=== PATIENT | male | born 1955 | race Caucasian/White ===

== ENCOUNTER 2020-06-24 06:45 | Observation (INO) ==
[2020-06-24] MEDS ORDERED: BUPIVACAINE 0.25% 30 ML VIAL ONE (07:36)
[2020-06-24] MEDS ORDERED: LIDOCAINE HCL 1% 20 ML VIAL ONE (07:36)
[2020-06-24] MEDS ORDERED: BACITRACIN INJ 50,000 UNIT VIAL ONE (07:36)
[2020-06-24] MEDS ORDERED: MIDAZOLAM HCL 5 MG/ML 1 ML VIAL ONE (08:23)
[2020-06-24] MEDS ORDERED: fentaNYL citrate 100 MCG/2 ML VIAL ONE (08:23)
--- NOTE | 2020-06-24 08:39 | History & Physical Bridge Note ---
Date of Service June 24, 2020 History & Physical Bridge Note I have examined the patient, reviewed the History & Physical and in the interval since the performance of the History & Physical I have noted the following changes of clinical significance: no changes noted
--- NOTE | 2020-06-24 08:39 | Pre Anesthesia Assessment ---
Date of Service June 24, 2020 Pre Sedation Assessment Vital Signs Temp Pulse Resp BP Pulse Ox 06/24/20 07:10 37.1 C 68 16 168/87 H 94 Cardiovascular + bradycardic Respiratory normal respiratory effort, lungs clear to auscultation Pre-Sedation Airway Assessment Smoking Status: Former smoker Hx Sleep Apnea: No Short, Thick Neck: No Thyromental Distance: > or= 3.5 Finger Breadths Oral Cavity: + Dentures Mallampati Class: II ASA: ASA3 NPO Status Date of Last Intake of Fluids: 06/24/20 Time of Last Intake of Fluids: 00:00 Date of Last Intake of Solid Food: 06/24/20 Time of Last Intake of Solid Foods: 00:00 Procedure Planning Contraindications for Sedation: none Current Medications Reviewed: Yes Notes The planned sedation has been discussed with the patient. Informed Consent was obtained. I have identified the patient, determined the appropriateness of sedation and have assessed the patient immediately prior to the procedure. All medicine(s) and interventions are by my order.
--- NOTE | 2020-06-24 10:42 | Post Anesthesia Assessment ---
Date of Service June 24, 2020 Post Sedation Assessment Vital Signs Temp Pulse Resp BP Pulse Ox 06/24/20 07:10 37.1 C 68 16 168/87 H 94 Recovery Score Activity: Moves 4 extremities Respiration: Deep Breath/Cough Circulation: +/-20% PreAnes Value Consciousness: Fully Awake Oxygen Saturation: > 92% On Room Air Discharge Sedation Level of Care: Fast Track Phase II Post Sedation Plan On clinical assessment, the patient appears to have tolerated the sedation without complications. Patient is recovering as anticipated. Patient will continue to be monitored by nursing and may be discharged when sedation discharge criteria are met per below protocol. Upon Completions of procedure up to 15 minutes continue every 5 minute vital signs and the P.A.R. score; then discharge to a Phase I or Fast Track to Phase II per the following guidelines: * Discharge Patient to appropriate Phase II area if PAR is 8 or greater or return to pre- procedure baseline. The post - procedure orders will be as directed. * If PAR score is less than 8 or not return to pre-procedure baseline then patient will follow Phase I monitoring till PAR is reached for Phase II. The Phase I may be done in procedure room or may call to secure a Phase I area. * If naloxone or flumazenil are used for reversal, hold in Phase I for continued monitoring from when last reversal dose was given for a minimum of 60 minutes or longer pending the nurse and/or physician discretion of patient condition before discharge to Phase II. Please call the Sedation Physician to re-evaluate and complete post-note for discharge to Phase II area. Do NOT discharge from procedure sedation or Phase 1 until post- sedation evaluation note is complete by procedure /sedation MD Sedation Discharge Instructions to be given to the patient at discharge to home.
[2020-06-24] MEDS ORDERED: ACETAMINOPHEN 325 MG TAB PO PRN (10:44)
[2020-06-24] MEDS ORDERED: oxyCODONE/ACETAMINOPHEN 5mg/325mg TAB PO PRN (10:44)
--- NOTE | 2020-06-24 10:44 | Operative Report ---
Post Operative Report Pre & Post Diagnosis intermittent CHB Operation Date: 06/24/20 08:00 <No data on this case meets the specified criteria> I identified the patient and participated in the time-out.: Yes Procedure Operation Date: 06/24/20 08:00 Actual Procedures p Pacer with A/V Leads (Dual) - Sunita Lee DO intracardiac mapping of the HIS bundle Surgeon Sunita Lee, DO Feed Manager none Estimated Blood Loss 20 Findings Consistent with Post-Op Diagnosis Specimens none Description of Procedure see official report I attest to the content of the Intraoperative Record and any orders documented therein. Any exceptions are noted below.
--- NOTE | 2020-06-24 11:01 | Discharge Summary ---
Date of Service June 25, 2020 Admission HPI Per Admitting Provider syncope and fatigue Admission Exam Per Admitting Provider aaox3, NAD NC/AT, EOMI Supple No JVD Nrl S1/S2, No murmur CTA b/l no w/r/r soft nt/nd no LE edema b/l skin intact no focal deficits Principal Diagnosis intermittent CHB s/p ppm Discharge Exam aaox3, NAD NC/AT, EOMI Supple No JVD Nrl S1/S2, No murmur CTA b/l no w/r/r soft nt/nd no LE edema b/l skin intact no focal deficits left pectoral incision intact, no hematoma mild ecchymosis Discharge Data Allergies Allergy/AdvReac Type Severity Reaction Status Date / Time abciximab AdvReac Nausea Verified 06/24/20 07:27 oxycodone AdvReac Nausea Verified 06/24/20 07:27 Procedures Performed Operation Date: 06/24/20 08:00 Actual Procedures p Pacer with A/V Leads (Dual) - Sunita Lee, Ordered Studies ECG: SR CXR: No PTX, leads in position PPM Interrogation: Normal function and lead testing 06/24/20 07:45 EP Lab Images for PACS ONCE Hospital Course (1) Intermittent complete heart block: Total Time Total Time Spent Total Time Spent (In Minutes): 40 Total Time Includes: Examination of the Patient, Discharge Planning, Medication Reconciliation and Other Discharge Plan Discharge Items Patient Disposition: Home - Self-Care Reason For Visit: Intermittent CHB Discharge Diagnosis: intermittent chb s/p ppm Condition on Discharge: Good Activity: As commented below Activity Comment: do not raise the left elbow over the left shoulder for 1 month Lifting: No more than 10 pounds Lifting Comment: do not lift more than 10 pounds with the left arm for 2 weeks Bathing: Keep incision dry Bathing Comment: keep dressing on and dry until wound check next week Sexual Activity: After two weeks Non-emergency contact: Casting Room Operator Call non-emergency contact if: you have any medication questions Follow-up/Referrals: PCP,NO [Primary Care Provider] - Diet: Heart Healthy Addtl Attending Provider Instructions: device and wound check next week at [facility] Pending Studies at Discharge: No Stand-Alone Forms: My [facility] MD [employer] Medications and DC Order Prescriptions: New metoprolol succinate 25 mg Tablet Extended Release 24 Hr 25 mg PO QAM 30 Days Qty: 30 RF: 0 Continued atorvastatin 80 mg Tablet 80 mg DAILY RF: 0 levothyroxine 100 mcg Tablet 100 mcg PO DAILY RF: 0 tamsulosin 0.4 mg Capsule 0.4 mg PO DAILY RF: 0 omeprazole 20 mg Capsule,Delayed Release(Dr/Ec) 20 mg PO BID RF: 0 folic acid 1 mg Tablet 1 mg BID RF: 0 aspirin 81 mg Tablet 81 mg PO DAILY RF: 0 metoprolol succinate 25 mg Tablet Extended Release 24 Hr 25 mg PO DAILY RF: 0 lisinopril 2.5 mg Tablet 2.5 mg PO DAILY RF: 0 etanercept 50 mg/mL (1 mL) Syringe 50 mg SUBCUT WK RF: 0 methotrexate (PF) 25 mg/0.5 mL Auto-Injector 20 mg SUBCUT WK RF: 0 Discharge Orders: Discharge Order (Routine); Ordered 06/25/20 Ordered By: Sunita Peoples/Other Patient Handouts: Pacemakers, Living with a Pacemaker Admission Data Admit Date/Time: 06/24/20 09:37 Attending Provider: Sunita Lee Admit Provider: Sunita Lee Primary Care Provider: PCP,NO Other Interventions: Discharge Summary Assessment (RN) Last Done: 06/25/20 09:41
[2020-06-24] MEDS: METOPROLOL SUCC 25MG EXT REL TAB PO SCH (12:41)
[2020-06-24] MEDS: [UNRECOGNIZED DRUG - REMARK] SCH ×2 (14:03→15:14)
[2020-06-24] MEDS: PANTOprazole 40 MG TAB PO SCH (20:26)
[2020-06-24] MEDS: FOLIC ACID 1 MG TAB PO SCH (20:26)
[2020-06-25] MEDS: [UNRECOGNIZED DRUG - REMARK] SCH ×2 (01:10→08:37)
--- NOTE | 2020-06-25 06:21 | Electrocardiogram Report ---
Test Reason : Blood Pressure : / mmHG Vent. Rate : 065 BPM Atrial Rate : 065 BPM P-R Int : 242 ms QRS Dur : 134 ms QT Int : 464 ms P-R-T Axes : 017 -66 008 degrees QTc Int : 482 ms Atrial-paced rhythm with prolonged AV conduction with occasional Premature ventricular complexes Left axis deviation Right bundle branch block Inferior infarct Abnormal ECG No previous ECGs available Confirmed by Piyush Gautam ([id number]) on 06/25/2020 6:20:51 AM Referred By: Sunita Lee Confirmed By:Piyush Gautam
[2020-06-25] MEDS ORDERED: LEVOTHYROXINE SODIUM 100 MCG TABLET PO SCH (06:30)
--- NOTE | 2020-06-25 08:02 | XRay Report ---
XR chest 2V PA/lateral CLINICAL HISTORY: Post pacemaker insertion. COMPARISON STUDY: No previous studies for comparison. FINDINGS: There is no pneumothorax following placement of a dual-lead left subclavian pacemaker. Lead tips project over the right atrial appendage and the right ventricle. Right shoulder arthroplasty is partially imaged. Note is made of cardiomegaly without evidence for pulmonary edema. There is no con solidation. No pleural effusion. IMPRESSION: No pneumothorax following placement of a dual-lead left subclavian pacemaker. ACT 112: Negative or not required by law. Electronically signed by: Eddie Pickett M.D. 06/25/2020 8:01 AM
[2020-06-25] MEDS: FOLIC ACID 1 MG TAB PO SCH (08:36)
[2020-06-25] MEDS: PANTOprazole 40 MG TAB PO SCH (08:36)
[2020-06-25] MEDS: METOPROLOL SUCC 25MG EXT REL TAB PO SCH (08:37)
[2020-06-25] MEDS ORDERED: TAMSULOSIN HCL 0.4 MG CAP PO SCH (09:00)
[2020-06-25] MEDS ORDERED: METOPROLOL SUCC 25MG EXT REL TAB PO SCH (09:00)
[2020-06-25] MEDS ORDERED: ATORVASTATIN 40 MG TAB PO SCH (09:00)
[2020-06-25] MEDS ORDERED: ASPIRIN 81 MG ECTAB PO SCH (09:00)
[2020-06-25] MEDS ORDERED: lisinopril 2.5 MG TAB PO SCH (09:00)
--- NOTE | 2020-06-29 03:12 | Operative Report (OR) ---
DATE OF OPERATION: 06/24/2020 PREOPERATIVE DIAGNOSIS: Intermittent incomplete heart block and syncope. POSTOPERATIVE DIAGNOSIS: Intermittent incomplete heart block and syncope. PROCEDURE: Dual chamber rate responsive permanent pacemaker (the right pacing lead was placed in the left bundle position). Permanent pacemaker with a peripheral venogram and intracardiac His bundle mapping under fluoroscopic guidance. SURGEON: Sunita Lee DO ASSISTANTS: None. ANESTHESIA: Monitored conscious sedation administered under my supervision by Lety White. Start time 9:04, end time 10:41, a total of 4 mg of Versed, 100 mcg of fentanyl. INTRAVENOUS FLUIDS: 57 mL. ANTIBIOTICS: Two grams of Ancef. BLOOD LOSS: 20 mL. CONTRAST: 20 mL. INDICATIONS: This is a 64-year-old gentleman who has a past medical history for right bundle branch block, first-degree AV block, and a left anterior fascicular block, coronary artery disease with a history of a PCI to the RCA with in-stent restenosis of the [employer] back where he got another PCI in 2018. Other vessels did have moderate disease. Hypertension, hyperlipidemia, ischemic cardiomyopathy with an ejection fraction of 40% back in [address] in 2019. Mild aortic insufficiency, rheumatoid arthritis on methotrexate, BPH, gastroesophageal reflux disease, hypothyroidism, prediabetes, possibly needing a total hip replacement in the near future. The patient wore a Zio patch monitor back in February of 2020 that showed a lot of intermittent complete heart block as well as potential nonsustained VT. He ultimately went to [facility] where an EP study was performed that was negative for any inducible VT and no pacemaker was placed. Due to him recently having near syncopal episode with the evidence of the intermittent complete heart block and trifascicular block, I recommended that he have a pacemaker. CONSENT: Consent was obtained prior to the patient going into the electrophysiology lab. The patient was informed of the risks, benefits, and alternatives to procedure. Risks include, but not limited to sudden cardiac , cardiac arrhythmias, cerebrovascular accident, myocardial infarction, injury to the blood vessels, chamber of the heart, lung, bleeding, and infection. The patient understood these risks and agreed with procedure as planned. Informed consent was obtained. DESCRIPTION OF THE PROCEDURE: The patient was brought into electrophysiology lab in a fasting state. He was connected to continuous cardiac monitoring. A timeout was performed to ensure patient identity and procedure correctly. The patient received prophylactic antibiotics prior to incision. Mather precautions were maintained throughout the procedure and conscious sedation was administered throughout the procedure for patient's comfort level. A 10 mL of 1% lidocaine and bupivacaine mixture were given in the left deltopectoral groove. Incision was made in the left deltopectoral groove. A peripheral venogram was performed to identify the axillary vein. Then axillary venous access was obtained through a needle stick and a guidewire was inserted through this without any resistance and then a 7-Lithuanian sheath was advanced over the guidewire without any resistance. Dilator was removed and a second guidewire was inserted through the sheath to allow for retained venous access. Sheath was removed, flushed, reinserted over the dilator, then reinserted along the guidewires. The guidewire and dilator removed. I initially put the right atrial lead into the right ventricular apex just so I had backup pacing as I was positioning the left bundle lead. Then I inserted another 7-Lithuanian SafeSheath over the retained guidewire. The guidewire and dilator removed. Using the [employer] preformed His guide, sheath was advanced over the Glidewire into the right ventricle and the Glidewire and dilator were removed. Then I did intracardiac mapping of the His bundle to find the AH and the HV. Once I had an idea of where the His was, I positioned the camera in SMITH 30 and then marlon an imaginary line about 2 cm down from the His in the direction towards the apex and marked this on my fluoroscopy screen to kind of have an idea of where 1 wanted my left bundle lead. Then I put the camera into BULGARIAN 30 and I came on pacing. I looked at the progression of the notching QR in the QRS complex in lead V1 as well as I measured the pacing stem to QRS peak in V6 as well as I monitored impedance drops as I continued to do intervals of few turns as the lead progressed into the septum. I did end up repositioning it once because I did not like how my QRS notch was moving as well as I felt like I was maybe a little too proximal into the fibrinous membranous septum. Ultimately I felt like I had good capture and I gave contrast through the sheath to see how far I was up against the septum. Once I liked the position and I liked how the complex in V1 as well as impedance drops and the pacing stem to QRS peak in V5 were, I then slid the His preformed J sheath. I left the 7-Lithuanian sheath in while I went back to reposition the right atrial lead. The right atrial lead that was positioned for backup and pacing in the right ventricular apex was unscrewed and repositioned into the right atrial appendage under fluoroscopic guidance. There was adequate pacing and sensing thresholds and no diaphragmatic stimulation with high output pacing. The 7-Lithuanian SafeSheath was peeled away and lead was fixated to pectoralis muscle with 0 silk suture. I then slid the 7-Lithuanian SafeSheath over the left bundle lead. The left bundle lead was then fixated to pectoralis muscle using 0 silk suture. A pacemaker pocket was created using blunt dissection over the pectoralis muscle and then the pectoralis fascia. Pocket was flushed with copious amounts of bacitracin saline wash and inspected for hemostasis. Pulse generator was then attached to leads making sure the pins were in appropriate position, passed set screw and set screws were all tightened. Pulse generator was then placed in the antibiotic pouch followed then by being placed in the pocket making sure that the leads were lying flat beneath the device. The incision was then closed in 3-layer fashion with 2-0 Vicryl interrupted suture followed by 3-0 Vicryl interrupted suture followed by 4-0 Monocryl running stitch and Dermabond was applied followed by a Telfa and micropore dressing. EQUIPMENT: 1. The pulse generator is a Medtronic [place] Heart XT DR HERNAN Maldonado [id number], serial number [id number]. 2. Tyrx pouch, reference [id number], lot number [id number], expiration 04/05/2021. 3. Right atrial lead, Medtronic 5076-52 cm, serial number [id number]. 4. Left bundle lead, Medtronic 3830-69 cm, serial number [id number]. INTRAOPERATIVE TESTIN. Right atrial lead: P-wave 3.1 millivolts, impedance 669 ohms, threshold 0.3 volts at 0.4 milliseconds. 2. Left bundle lead: R-wave 4 millivolts, impedance 810 ohms, threshold 0.4 volts at 0.4 milliseconds. 3. The AH was 98 milliseconds and the HV was 71 milliseconds. FINAL MEASUREMENTS THROUGH THE DEVICE: 1. Right atrial lead: P waves 1.3 millivolts, impedance 551 ohms, threshold 0.75 volts at 0.4 milliseconds. 2. Left bundle lead: R waves 5.3 millivolts, impedance 741 ohms, threshold 0.5 volts at 0.4 milliseconds. FINAL PARAMETERS: MVP-R 60/130, right atrial amplitude 3.5 volts, pulse width 0.4 milliseconds, sensitivity 0.3 millivolts. Right ventricular amplitude 3.5 volts, pulse width 0.4 milliseconds, sensitivity 1.2 millivolts. IMPRESSION: Successful dual chamber rate responsive permanent pacemaker implantation along with a peripheral venogram and intracardiac mapping of the His bundle region under fluoroscopic guidance secondary to syncope and intermittent complete heart block along with trifascicular block. PLAN: Monitor patient overnight, 12-lead ECG, chest x-ray. He cannot lift the left elbow or left shoulder for 1 month. He cannot lift more than 10 pounds with the left arm for 2 weeks. He is to keep the dressing on and dry until his wound check in our [facility] next week. We will also start him on beta gricelda. I attest to the content of the Intraoperative Record and any orders documented therein. Any exceptions are noted below. JONATHAN
--- NOTE | 2020-07-02 14:30 | Coding Query ---
CODING QUERY To promote full compliance with coding requirements relating to patient care, provider participation is requested in all cases of veneer drier tailer uncertainty. Please assist us with the question(s) below: Coding Question(s): Please clarify the patient's pre-operative an post-operative diagnosis- Intermittent incomplete heart block and on the H&P and Discharge summary Intermittent Complete heart block. ____Intermittent incomplete heart block __X__Intermittent complete heart block ____Other, please specify Physician's Response(s): Thank you Tootie Frey CCS Principal Diagnosis: "that condition established after study, to be chiefly responsible for occasioning the admission of the patient to the hospital for care." Co-Existing Principal Diagnosis: "when two or more diagnoses equally meet the criteria for principal diagnosis as determined by the circumstances of admission, diagnostic work up, and/or therapy provided, and the Alphabetic Index, Tabular List, or another coding guideline does not provide sequencing direction, any one of the diagnoses may be sequenced first." "When the physician has documented what appears to be a current diagnosis in the body of the record, but has not included the diagnosis in the final diagnostic statement, the physician should be asked whether the diagnosis should be added." (Source [facility]oding [facility] 2 QTR90. p3-4) JONATHAN
== END 2020-06-25 12:27 | disposition home or self-care (01) ==
LOC: 2E 06:45 → EP 06:45

== ENCOUNTER 2022-04-16 08:09 | Observation (INO) ==
--- NOTE | 2022-03-30 14:25 | PAT Medication Instructions ---
Medication Instructions Date of Service March 30, 2022 Home Medications Medication Instructions Recorded Jonnie Panda #1 ea 03/26/22 aspirin 81 mg tablet 81 mg PO QAM atorvastatin 80 mg tablet 80 mg PO HS etanercept 50 mg/mL (1 mL) subcutaneous syringe (Enbrel) 50 mg subcut WK folic acid 1 mg tablet 1 mg PO QAM lisinopril 2.5 mg tablet 2.5 mg PO QAM metoprolol succinate 25 mg tablet,extended release 24 hr 25 mg PO QAM omeprazole 20 mg capsule,delayed release 20 mg PO QAM tamsulosin 0.4 mg capsule 0.4 mg PO QPM albuterol sulfate 90 mcg/actuation aerosol inhaler 1 inh inhalation QID PRN sob cyanocobalamin (vitamin B-12) 100 mcg tablet (Vitamin B-12) 100 mcg PO QAM fluticasone 250 mcg-salmeterol 50 mcg/dose blistr powdr for inhalation (Advair Diskus) 1 inh inhalation BID furosemide 40 mg tablet 40 mg PO QAM levothyroxine 88 mcg tablet 88 mcg PO QAM metformin 500 mg tablet 500 mg PO QAM naloxone 4 mg/actuation nasal spray 4 mg intranasal UD PRN narcotic overdose oxycodone 5 mg tablet 5 mg PO BID PRN Pain potassium chloride 20 mEq tablet,extended release 20 meq PO QAM Continue as directed naloxone 4 mg/actuation nasal spray 4 mg intranasal UD PRN narcotic overdose (if needed) ASK your prescriber and surgeon etanercept 50 mg/mL (1 mL) subcutaneous syringe (Enbrel) 50 mg subcut WK DO NOT take the morning of surgery folic acid 1 mg tablet 1 mg PO QAM lisinopril 2.5 mg tablet 2.5 mg PO QAM cyanocobalamin (vitamin B-12) 100 mcg tablet (Vitamin B-12) 100 mcg PO QAM furosemide 40 mg tablet 40 mg PO QAM metformin 500 mg tablet 500 mg PO QAM potassium chloride 20 mEq tablet,extended release 20 meq PO QAM Take morning of surgery With a small sip of water, OTHERWISE NOTHING TO EAT OR DRINK AFTER MIDNIGHT: aspirin 81 mg tablet 81 mg PO QAM (unless surgeon directed otherwise) metoprolol succinate 25 mg tablet,extended release 24 hr 25 mg PO QAM omeprazole 20 mg capsule,delayed release 20 mg PO QAM albuterol sulfate 90 mcg/actuation aerosol inhaler 1 inh inhalation QID PRN sob (use if needed; please bring with you to hospital day of surgery if possible) fluticasone 250 mcg-salmeterol 50 mcg/dose blistr powdr for inhalation (Advair Diskus) 1 inh inhalation BID levothyroxine 88 mcg tablet 88 mcg PO QAM oxycodone 5 mg tablet 5 mg PO BID PRN Pain (if needed) Take evening before surgery atorvastatin 80 mg tablet 80 mg PO HS tamsulosin 0.4 mg capsule 0.4 mg PO QPM albuterol sulfate 90 mcg/actuation aerosol inhaler 1 inh inhalation QID PRN sob (if needed) fluticasone 250 mcg-salmeterol 50 mcg/dose blistr powdr for inhalation (Advair Diskus) 1 inh inhalation BID oxycodone 5 mg tablet 5 mg PO BID PRN Pain (if needed) Other Notes If you have any questions please call us at [phone] or [phone] or [phone] or [phone]
--- NOTE | 2022-03-31 11:13 | Anesthesiology Consultation ---
Date of Service March 31, 2022 Assessment & Plan (1) Encounter for pre-operative examination: Chart Review Chart Review: Acceptable Risk for Surgery (pending preop Covid testing results ) and Patient seen in Pre Admission Testing - Check BSG AM DOS Per PAT appt on 03/31/22, patient denies any recent travel or large group activities. No known Covid positive exposures or Covid related symptoms. No known Covid infection in the past 90 days. Pt is vaccinated for Covid. Preop Covid testing scheduled 04/14/22 = will await results. Educated on importance of self quarantining, social distancing and wearing mask in public for the patient one week prior to surgery and after Covid testing done Pt seen by PCP 03/30/22= patient seen for routine follow-up. Planning to have right LUBA later this month. Has been cleared by file conversion operator already. Doing well overall. Would consider patient medically stabilized for planned right total hip arthroplasty. Does have some increased risk due to chronic cardiac and pulmonary disease but stable. Current medically optimized. Okay to proceed with surgery as scheduled. Pt seen by cardio 02/25/22= seen for routine follow-up. Feels well from cardiovascular perspective. Continues with right-sided hip discomfort. Paroxysmal SVT per pacemaker interrogationpalpitations controlled with Topro lno recurrence on PPM interrogation December 2021. CAD with ischemic cardiomyopathymost recent EF 50-54%. Stable without exertional angina. Isolated episode of recurrent atypical chest discomfortstable EKG today. Recent DSE negative for inducible ischemia September 2020. Complete heart block with underlying conduction disease including RBBB and LAFB status post chamber pacemaker implantation May 2020. Nonsustained ventricular tachycardia. 0 monitorno inducible VT per EPS/no dysrhythmia. PPM interrogation December 2021. Hypertensioncontrolled. Dyslipidemiacontrolled. Continue current medications as prescribed. Patient is considered moderate perioperative cardiovascular risk. His functional capacity is adequate (greater than 4 METS) without anginal symptoms. Risk discussed during today's office visit. Follow-up in 6 months Teaching & Discussion Pre-Anesthesia Teaching/Discussion Notes: Instructed NPO after midnight before surgery,except medications with 15 cc of water. Medication instructions provided according to the PAT guidelines. History Surgery Operation Date: 04/16/22 10:40 Proposed Procedures p Right Total Hip Arthroplasty - Braulio Ornelas MD Height/Weight Height: 5 ft 6 in Weight: 84.5 kg Allergies Allergy/AdvReac Type Severity Reaction Status Date / Time abciximab AdvReac Severe Nausea Verified 03/30/22 12:38 oxycodone AdvReac Severe Nausea Verified 03/30/22 12:38 Medications Home Medications Medication Instructions Recorded Confirmed Last Taken aspirin 81 mg tablet 81 mg PO QAM 06/24/20 03/30/22 Unknown atorvastatin 80 mg tablet 80 mg PO HS 06/24/20 03/30/22 Unknown etanercept 50 mg/mL (1 mL) 50 mg subcut WK 06/24/20 03/30/22 Unknown subcutaneous syringe (Enbrel) folic acid 1 mg tablet 1 mg PO QAM 06/24/20 03/30/22 Unknown lisinopril 2.5 mg tablet 2.5 mg PO QAM 06/24/20 03/30/22 Unknown metoprolol succinate 25 mg 25 mg PO QAM 06/24/20 03/30/22 Unknown tablet,extended release 24 hr omeprazole 20 mg capsule,delayed 20 mg PO QAM 06/24/20 03/30/22 Unknown release tamsulosin 0.4 mg capsule 0.4 mg PO QPM 06/24/20 03/30/22 Unknown Wheeled Walker #1 ea 03/26/22 03/26/22 Unknown albuterol sulfate 90 mcg/actuation 1 inh inhalation QID PRN sob 03/30/22 03/30/22 Unknown aerosol inhaler cyanocobalamin (vitamin B-12) 100 100 mcg PO QAM 03/30/22 03/30/22 Unknown mcg tablet (Vitamin B-12) fluticasone 250 mcg-salmeterol 50 1 inh inhalation BID 03/30/22 03/30/22 Unknown mcg/dose blistr powdr for inhalation (Advair Diskus) furosemide 40 mg tablet 40 mg PO QAM 03/30/22 03/30/22 Unknown levothyroxine 88 mcg tablet 88 mcg PO QAM 03/30/22 03/30/22 Unknown metformin 500 mg tablet 500 mg PO QAM 03/30/22 03/30/22 Unknown naloxone 4 mg/actuation nasal spray 4 mg intranasal UD PRN narcotic 03/30/22 03/30/22 Unknown overdose oxycodone 5 mg tablet 5 mg PO BID PRN Pain 03/30/22 03/30/22 Unknown potassium chloride 20 mEq 20 meq PO QAM 03/30/22 03/30/22 Unknown tablet,extended release Past Medical History Medical History (Updated 03/31/22 @ 11:42 by Alesha Roberto PA-C) CAD (coronary artery disease) S/p stent x 1 in 2000 (RCA) S/p stents x 3 in 2018 (mid RCA) Chronic obstructive pulmonary disease Mild - well controlled with inhalers Congestive heart failure Hx of ischemic CM EF 50-54% per 10/2021 ECHO Diabetes mellitus, type 2 NIDDM Glucose stable GERD (gastroesophageal reflux disease) Well controlled and stable per patient History of COVID-19 09/2020. Mild cold symptoms. No current problems Hx of cardiac pacemaker Medtronic. Placed 2019 at [facility]. Last checked October 2021. Follows with [facility] Cardio Hx of tachycardia-bradycardia syndrome S/p pacemaker placement Hyperlipidemia Hypertension Hypothyroidism Intermittent complete heart block S/p PPM Kidney stones No recent issues Lumbar disc disease Hx of ruptured discs to lumbar spine Myocardial Infarction 2017 2000 Rheumatoid arthritis SVT (supraventricular tachycardia) Paroxysmal per pacemaker interrogation per cardio records No recurrence on PPM interrogation 12/2021 (on Toprol XL) Exercise / Class Metabolic Activity III < 4 Walking/Shop/Light housework (no chest pain or SOB with flat surface ambulation ) Past Family History Family History Other No family history of adverse response to anesthesia Past Surgical History Surgical History H/O inguinal hernia repair right H/O umbilical hernia repair History of colonoscopy History of heart artery stent one stent placed in 2000 and 3 stents placed in 2018 at [facility] S/P cardiac catheterization 2000 & 2018 ([facility]) S/P cardiac pacemaker procedure (~06/24/20) [facility] S/P right knee arthroscopy Status post reverse total replacement of right shoulder Past Anesthesia History No Hx of Anesthesia Complications and No Family Hx of Anesthesia Complications History of PONV No Hx of PONV and No Hx of Motion Sickness Social History Smoking Status: Former smoker tobacco type: cigarettes Do You Dip or Chew Tobacco: No Smoking End Date: Hx Alcohol Use: Yes Alcohol type: beer alcohol intake frequency: holidays/special occasions only Hx Substance Use: No substance use type: does not use Review of Systems Hx of snoring - no witnessed apnea- no hx of sleep study Patient denies chest pain, shortness of breath, dyspnea on exertion, cough, wheezing, palpitations. No hx of seizures, stroke. No hx of blood clots or blood transfusions Physical Exam Vital Signs VITALS BP 125/74 P 78 TEMP 97.8 SP02 95% RESP 16 Constitutional no acute distress ENMT Mouth: no TMJ clicking Thyromental Distance: < 3.5 Finger Breadths (3.0) Mallampati Class: II Missing all teeth Neck + short neck, + thick neck and + limited neck extension Respiratory normal respiratory effort; no respiratory distress Auscultation: lungs clear to auscultation bilaterally; no wheezes Cardiovascular Rate/Rhythm: regular rate and regular rhythm Heart Sounds: no murmur Vessels: no carotid bruit Musculoskeletal Spine: no pain with cervical ROM Extremities: extremities normal to inspection Psychiatric Orientation: alert Lab Results Anesthesia Preop Results Results Anesthesia Widget: WBC 7.65 K/ul (4.8-10.8) 03/31/22 Hgb 12.6 g/dl (14.0-18.0) L 03/31/22 Hct 36.3 % (40.1-51.0) L 03/31/22 Plt 276 K/uL (130-400) 03/31/22 Na 136 mmol/L (136-145) 03/31/22 K 3.8 mmol/L (3.5-5.1) 03/31/22 Cl 101 mmol/L (98-107) 03/31/22 CO2 27 mmol/L (21-32) 03/31/22 BUN 18 mg/dl (6-23) 03/31/22 Creat 0.96 mg/dl (0.6-1.4) 03/31/22 Glucose Level 184 mg/dl (70-99(Fasting)) H 03/31/22 PT 10.9 Seconds (9.0-12.0) 03/31/22 PTT 25.6 Seconds (21.0-31.0) 03/31/22 INR 1.0 (0.9-1.1) 03/31/22 HA1c 7.3 % (4.5-5.6) H 03/31/22 Blood Type O Positive 03/31/22 Antibody Screen POSITIVE A 03/31/22 Testing Laboratory Results Did speak with Blood Bank re: positive antibodies- no additional work up needed prior to DOS Electrocardiogram Date: 10/28/21 Atrial paced rhythm with prolonged AV conduction with premature supraventricular complexes at 72 bpm. Left axis deviation. Right bundle branch block. When compared to EKG from May 20lectronic atrial pacemaker is replaced sinus rhythm, nonspecific T wave abnormality now evident in anterior lateral leads per cardio Chest X-Ray Date: 03/31/22 Findings: + NAD Left sided dual- chamber pacemaker Echocardiogram Date: 11/24/21 EF: 50-54% LV Function: normal Other Findings: + LVH (Moderate/concentric) and + diastolic dysfunction (Grade 1) Severe hypokinesis to akinesis of the basilar and mid inferior wall. Posterior wall is hypokinetic at the base and mid level. Mild AR Stress Test Date: 10/24/20 Type: DSE Resting EF: 45-49% Resting LV Function: dysfunctional Valvular Disease: no significant valvular disease Stress echo was negative for inducible ischemia. Adequate/appropriate heart rate and BP response to dobutamine/atropine stress protocol. No symptoms were noted. Interventricular conduction delay was noted at rest. Stress EKG was nondiagnostic secondary to conduction abnormalities. At rest, there is severe hypokinesis to akinesis of the basilar and mid inferior wall. Posterior wall is hypokinetic at the base and mid level. Subtle hypokinesis of the lateral wall. With stress all segments improve in function including those with wall motion abnormalities at rest. No new wall motion abnormalities suggest ischemia. LV ejection fraction increases normally with stress. Moderate concentric LVH. Grade 1 DD. Cardiac Catheterization Date: 11/17/17 LM = no evidence of disease LAD = 40% stenosis in proximal LAD (unchanged from 2014 study); 50% stenosis in the ostium of first diagonal; 40% stenosis in mid LAD (has not changed in severity or character since 2014) Circumflex = proximal 60% stenosis which is smooth and unchanged in severity compared to 2014 RCA = mid RCA severely diseased and has an existing [id number]% lesion in mid RCA. Distal RCA consists of moderate size posterior descending artery branch and a moderate-sized posterior lateral branch. Prior to PCI of the RCA these distal branches fill fairly well via collateral channels originating primarily from LAD septal branches Conclusions: Coronary arteries have significant one-vessel disease. PAULETTE/PCI of chronic total occlusion of RCA with three PAULETTE Cervical Spine Date: 03/31/22 No acute bony abnormality is seen involving the cervical spine on these lateral projections. No inducible bony subluxation is seen on the flexion/extension views. Osteopenia and spondylotic change. Other Testing Pacemaker check 10/29/2021 =Medtronic pacemaker. Implanted 06/24/2020. Mode: AAIR<-->DDDR. Atrial paced 40.3%. Ventricular paced <0.1%. No observations based on current interrogation.
[~2022-04-16 08:09] MED LIST: ACETAMINOPHEN 500 MG TAB PO SCH; BUPIVACAINE 0.5 % 5 MG/1 ML PF 10ML VIAL ONE; CeleBREX 200 MG CAP PO SCH; FAMOTIDINE 20 MG TAB PO SCH; LR 500ML BOLUS, THEN 15ML/HR IV SCH; LR 60ML/HR IV SCH; METOCLOPRAMIDE HCL 10 MG TABLET PO SCH; Scopolamine 1 MG TDSY TD SCH; TRANEXAMIC ACID 1,000 MG **IV Pre-op IV SCH; ceFAZolin 2000MG 2,000 MG/15 ML SYR IV SCH
[2022-04-16] MEDS ORDERED: MIDAZOLAM HCL 1 MG/ML 2ML VIAL ONE (08:27)
[2022-04-16] MEDS ORDERED: fentaNYL citrate 100 MCG/2 ML VIAL ONE (08:28)
--- NOTE | 2022-04-16 09:01 | History & Physical Bridge Note ---
Date of Service April 16, 2022 History & Physical Bridge Note I have examined the patient, reviewed the History & Physical and in the interval since the performance of the History & Physical I have noted the following changes of clinical significance: no changes noted
[2022-04-16] MEDS ORDERED: MoRPHine SULFATE PF 1 MG/ML 10 ML AMP/VIAL ONE (10:00)
[2022-04-16] MEDS ORDERED: PROPOFOL IV EMULSION 10 MG/ML 20 ML VIAL IV ONE (10:29)
[2022-04-16] MEDS ORDERED: MoRPHine SULFATE PF 1 MG/ML 10 ML AMP/VIAL INT SPINAL ONE (10:30)
[2022-04-16] MEDS ORDERED: ATROPINE SULFATE 0.1 MG/ML 10ML SYR IV PRN (10:30)
[2022-04-16] MEDS ORDERED: NALOXONE HCL 1 MG in SODIUM CHLORIDE 0.9% 1000ML 1,000 ML IV PRN (10:30)
[2022-04-16] MEDS ORDERED: diphenhydrAMINE 50 MG/ML VIAL IV PRN (10:30)
[2022-04-16] MEDS ORDERED: LACTATED RINGER'S 500 ML IV PRN (10:30)
[2022-04-16] MEDS ORDERED: ePHEDrine sulfate 50 MG/ML AMP IV PRN ×2 (10:30)
[2022-04-16] MEDS ORDERED: DC INTRASPINAL MORPHINE SCH (10:30)
[2022-04-16] MEDS ORDERED: NALOXONE HCL 0.4 MG/1 ML VIAL/CARP IV PRN ×2 (10:30→14:51)
[2022-04-16] MEDS ORDERED: NALBUPHINE HCL INJ 10 MG/ML AMP IV PRN (10:30)
[2022-04-16] MEDS ORDERED: fentaNYL citrate 100 MCG/2 ML VIAL IV PRN (10:30)
[2022-04-16] MEDS ORDERED: MoRPHine SULFATE 2 MG/ML CARP IV PRN (10:30)
[2022-04-16] MEDS ORDERED: NO NARCOTICS OR SEDATIVES SCH (10:30)
[2022-04-16] MEDS ORDERED: ONDANSETRON INJ 2 MG/ML 2 ML VIAL IV PRN ×3 (10:30→14:51)
[2022-04-16] MEDS ORDERED: SODIUM CHLORIDE 0.9% 1000ML 1,000 ML IV SCH (10:30)
[2022-04-16] MEDS ORDERED: NALOXONE HCL 0.08 MG in SYRINGE 1.8 ML IV PRN (10:30)
[2022-04-16] MEDS ORDERED: HYDROmorphone INJ 2 MG/ML SYR/VIAL IV PRN (10:30)
[2022-04-16] MEDS ORDERED: BUPIVACAINE 0.5 % 5 MG/1 ML MPF 30ML VIAL ONE (10:53)
[2022-04-16] MEDS ORDERED: EPINEPHrine INJ 1 MG/ML AMP ONE (10:53)
[2022-04-16] MEDS ORDERED: ePHEDrine sulfate 50 MG/ML SYR ONE (12:06)
[2022-04-16] MEDS ORDERED: PHENYLEPHRINE 100MCG/ML 5ML SYR ONE (12:06)
[2022-04-16] MEDS ORDERED: PHENYLEPHRINE HCL 10 MG/ML VIAL ONE (12:06)
[2022-04-16] MEDS ORDERED: GLUCOSE 10 TAB/TUBE PO PRN ×2 (13:02→15:15)
[2022-04-16] MEDS ORDERED: CARBOHYDRATES FOR HYPOGLYCEMIA PO PRN ×2 (13:02→15:15)
[2022-04-16] MEDS ORDERED: GLUCOSE 40% GEL 15 GM TUBE PO PRN ×2 (13:02→15:15)
[2022-04-16] MEDS ORDERED: DEXTROSE 50% 50 ML SYRINGE IV PRN ×2 (13:02→15:15)
[2022-04-16] MEDS ORDERED: GLUCAGON FOR INJ 1 MG VIAL SQ PRN (13:02)
--- NOTE | 2022-04-16 13:10 | Operative Report ---
PG Post Operative Report Pre & Post Diagnosis Operation Date: 04/16/22 10:40 Pre-Op Diagnosis: Right Hip Advanced Degenerative Joint Disease Post-Op Diagnosis: Right Hip Advanced Degenerative Joint Disease I identified the patient and participated in the time-out.: Yes Procedure Operation Date: 04/16/22 10:40 Actual Procedures p Right Total Hip Arthroplasty--Uncemented(Right) - Braulio Ornelas MD Surgeon Braulio Ornelas MD Soap Maker Kurtis Almeida PA-C Estimated Blood Loss 500 Findings Consistent with Post-Op Diagnosis Fluids 1400 cc Specimens Right femoral head sent for pathology Drains None Anesthesia Type Spinal MAC Complications none Disposition Accompanied Patient To Recovery: Yes Indications Patient is 66-year-old gentleman with multiple medical comorbidities who said a several year history of increasing right hip pain discomfort describes gotten worse over time. Failed conservative measures and elected proceed with total hip arthroplasty. The patient was medically optimized for surgery. Description of Procedure Operative implants consist of: 1. Biomet G7 size 52 mm acetabular shell. 2. 6.5 cancellous acetabular screws 1 of 35 mm length 120 mm length. 3. [place] hole senior web analyst. 4. Highly cross-linked polyethylene liner with a 52 mm outer diameter, 36 mm diam with a gonzales placed inferior and posterior. 3. DePuy Corail standard size 11 femoral stem. 5. +5/36 mm ceramic articular ball. The patient was taken the operating, identified, placed on the operating table supine position protectors were properly padded. IV antibiotics tried by anesthesia team. A spinal anesthetic been implemented holding area. Arias catheter was placed in sterile fashion. The patient was then placed in the left lateral decubitus position. Axillary roll was placed. Stulberg hip positioner was used for positioning. The right hip and leg were then prepped and draped in usual sterile fashion. A posterior lateral puncture of the right hip was then performed through a curvilinear incision centered over the greater trochanter. Sharp dissection scalp through subcutaneous tissue down below the IT band gluteal fascia the IT band gluteal fascia incised longitudinally in line with skin incision. The underlying greater bursa was excised. The piriformis and external rotators along with the posterior hip joint capsule were then released and the posterior aspect hip as a single layer. Great care was taken throughout the procedure protect the sciatic nerve at all times. Hip was internally rotated and dislocated. A femoral neck osteotomy cut was made with Final Cut about 15 mm above the lesser trochanter. Femoral head was removed and sent for pathology. The femur was retracted anteriorly. The acetabular labrum was excised. Pulmonary fat was excised. Sequential reaming the acetabular was then performed begin with size 45 and progressing up to a 51. I reamed a little bit with a 52 reamer. His superior posterior acetabular wall was quite deficient. I placed a 52 mm acetabular cup in about 40 degrees lateral opening and 20 degrees of anteversion. It was fixed with two 6.5 cancellous acetabular screws. Trial liner was placed. Attention drawn the femur. The proximal femur was entered with a CicerOOs cutter followed by canal finder. I then broached begin the size 8 press up to 11. I could not even quite get the 11 down bone and it was a nice fit. We then trialed the hip and the +5 articular ball seem to recreate leg lengths appropriately and was fully stable full extension external rotation flexion to 90 degrees internal rotation to over 50 degrees. I did elect to place a gonzales on his liner to maximize his stability in flexion. We elect to place these implants. All trial implants were removed. An apex hole senior web analyst was placed. Highly cross-linked polyethylene liner was placed. A size 11 standard stem was impacted in position. A +5/36 mm ceramic articular ball was placed and hip was located. There was a fairly large vein inferiorly that we did spend some time cauterizing and eventually tied off with a 2-0 nylon suture near the end of the case. There was obviously a vein. I cauterized the end of the vein as well along with the suture. Hemostasis was well-maintained. We did inject locally with 60 cc of half percent Marcaine with epinephrine. I then irrigated the wound extensively. The posterior capsule and external rotators were then repaired to the posterior aspect of the trochanter with #2 Tycron suture in a si ngle layer. The IT band gluteal fascia then closed in 1 PDS suture running fashion for subcutaneous tissue then closed with 2 layers with deep layer 0 Vicryl in the subcutaneous tissues with 2-0 Dexon suture in buried interrupted fashion for skin was closed skin herlinda. Leg was then cleaned and dried and sterile dressing was Xeroform, 4 fours, sterile ABD pad and foam tape was applied. Patient then transferred to the recovery room in stable condition. Patient tolerated procedure well and there were no complications. Kurtis Daniel, my physician retail sales assistant, was present for the entire procedure. His assistance was required for proper patient positioning, prepping and draping, surgical exposure, retraction, perform the technical details of the operation, placement of the implants, closure of the wound and placement of sterile bandage. I attest to the content of the Intraoperative Record and any orders documented therein. Any exceptions are noted below.
--- NOTE | 2022-04-16 14:43 | XRay Report ---
AP PELVIS, CROSSTABLE LATERAL RIGHT HIP History: Right total hip arthroplasty. Degenerative arthritis. Postop. FINDINGS: The patient is status post a right total hip arthroplasty. The hardware is intact. No fract ure or dislocation. Skin herlinda are in place. IMPRESSION: Right total hip arthroplasty. No evidence for hardware complication ACT 112: Negative or not required by law. Electronically signed by: Josiah Aldridge M.D. 04/16/2022 2:41 PM
--- NOTE | 2022-04-16 14:43 | Anesthesiology Progress Note ---
Date of Service April 16, 2022 Anesthesia Post Procedure Vital Signs Vital Signs: Temp Pulse Resp BP BP Pulse Ox O2 Del Method 04/16/22 14:30 36.4 C L 61 17 118/62 96 Room Air 04/16/22 14:15 62 17 108/60 97 Room Air 04/16/22 14:00 63 17 102/65 95 Room Air 04/16/22 13:45 77 18 114/63 94 Room Air 04/16/22 13:35 66 18 118/62 95 Room Air 04/16/22 13:25 36.8 C 70 18 109/63 95 Room Air 04/16/22 13:15 71 17 110/74 98 Oxymask 04/16/22 13:05 65 18 120/71 98 Oxymask 04/16/22 12:57 37.0 C 72 18 108/69 98 Oxymask 04/16/22 08:38 36.8 C 85 20 167/73 H 95 Room Air O2 Flow Rate 04/16/22 14:30 04/16/22 14:15 04/16/22 14:00 04/16/22 13:45 04/16/22 13:35 04/16/22 13:25 04/16/22 13:15 5 04/16/22 13:05 5 04/16/22 12:57 5 04/16/22 08:38 Pain Intensity Left Hip: Pain Intensity: 6 Transfer of Care Handoff Completed per policy Notes Mental Status: alert / awake / arousable and participated in evaluation Patient Amnestic to Procedure: Yes Nausea / Vomiting: adequately controlled Pain: adequately controlled Airway Patency, RR, SpO2: stable & adequate BP & HR: stable & adequate Hydration State: stable & adequate Anesthetic Complications: no major complications apparent and Pt Satisfied with anesthetic care
[2022-04-16] MEDS ORDERED: PHARMACY GLYCEMIC MGMT CONSULT PRN (14:51)
[2022-04-16] MEDS ORDERED: bisacodyL 10 MG SUPP PR PRN (14:51)
[2022-04-16] MEDS ORDERED: METOCLOPRAMIDE HCL INJ 5 MG/ML 2 ML VIAL IV PRN (14:51)
[2022-04-16] MEDS ORDERED: NALOXONE NASAL SPRAY 4 MG ER HOMEPACK PRN (14:51)
[2022-04-16] MEDS ORDERED: ALBUTEROL HFA 8 GM INHALER INH PRN (14:51)
[2022-04-16] MEDS ORDERED: ALUMINUM/MAGNESIUM SUSP 30 ML UDC PO PRN (14:51)
[2022-04-16] MEDS ORDERED: traMADol HCL 50 MG TABLET PO PRN (14:51)
[2022-04-16] MEDS ORDERED: HYDROmorphone INJ 0.5 MG/0.5 ML SYR IV PRN (14:51)
[2022-04-16] MEDS ORDERED: NON-FORMULARY MEDICATION (Etanercept [Enbrel] 50 mg/mL (1 mL) Syringe) SQ SCH (14:51)
[2022-04-16] MEDS ORDERED: MAGNESIUM HYDROXIDE SUSP 30 ML UDC PO PRN (14:51)
--- NOTE | 2022-04-16 15:09 | Pharmacy Report ---
Pharmacy Glycemic Short Note 2 - Date of Service April 16, 2022 - Glycemic Short BSG Results (Last 24 hours): 04/16/22 04/16/22 08:46 13:15 POC Glucose 147 H 187 H OUTPATIENT ANTIDIABETIC REGIMEN: * Metformin 500 mg PO daily HbA1c: 7.3% (03/31/22) ASSESSMENT: * HB is a 66 year old male POD #0 s/p right total hip arthroplasty * No perioperative steroids * Reasonably controlled T2DM with metformin only * Fasting BSG prior to surgery is 147 mg/dL, postop BSG of 187 mg/dL * Will initiate basal insulin in light of elevated fasting BSG and use weight- based stress of 2.5 Novolog parameters PLAN FOR INPATIENT GLYCEMIC CONTROL: * Hold outpatient oral diabetes medications * consider restarting tomorrow * Basal insulin * Lantus 15 units SQ x 1 (~0.2 unit/kg) * Bolus insulin * NovoLog per scale ACHS or Q6hrs while NPO * Goal Range: Low 110 mg/dL - High 140 mg/dL * Correction Factor: 25 mg/dL/unit * Nutritional / Prandial insulin per carb ratio of 1 unit per 8 grams CHO consumed
[2022-04-16] MEDS: Scopolamine CHECK PATCH PLACEMENT SCH ×2 (15:14→23:12)
[2022-04-16] MEDS: ACETAMINOPHEN 500 MG TAB PO SCH ×2 (15:14→21:34)
[2022-04-16] MEDS: SODIUM CHLORIDE 0.9% 1000ML 1,000 ML IV SCH (15:14)
[2022-04-16] MEDS ORDERED: GLUCAGON FOR INJ 1 MG VIAL IM PRN (15:15)
[2022-04-16] MEDS: KETOROLAC TROMETHAMINE 15 MG/ML VIAL IV SCH ×2 (15:15→21:35)
[2022-04-16] MEDS ORDERED: LANTUS PER UNIT CHARGE SQ ONE (16:30)
[2022-04-16] MEDS: ceFAZolin 2000MG 2,000 MG/15 ML SYR IV SCH (18:09)
[2022-04-16] MEDS: INSULIN ASPART PER UNIT SC SCH ×2 (18:10→21:29)
[2022-04-16] MEDS: ASCORBIC ACID 500 MG TAB PO SCH (18:10)
[2022-04-16] MEDS ORDERED: TRANEXAMIC ACID / 0.7% NACL 1,000 MG/100 ML BAG IV SCH (19:00)
[2022-04-16] MEDS ORDERED: TAMSULOSIN HCL 0.4 MG CAP PO SCH (21:00)
[2022-04-16] MEDS ORDERED: ATORVASTATIN 40 MG TAB PO SCH (21:00)
[2022-04-16] MEDS ORDERED: SENNA 8.6 MG TAB PO SCH (21:00)
[2022-04-16] MEDS: DOCUSATE SODIUM 100 MG CAP PO SCH (21:32)
[2022-04-16] MEDS: ASPIRIN 81 MG ECTAB PO SCH (21:33)
[2022-04-17] MEDS: SODIUM CHLORIDE 0.9% 1000ML 1,000 ML IV SCH (00:15)
[2022-04-17] MEDS: ceFAZolin 2000MG 2,000 MG/15 ML SYR IV SCH (03:37)
[2022-04-17] MEDS: KETOROLAC TROMETHAMINE 15 MG/ML VIAL IV SCH ×2 (03:38→09:14)
[2022-04-17] MEDS: ACETAMINOPHEN 500 MG TAB PO SCH ×2 (06:13→13:11)
[2022-04-17] MEDS ORDERED: LEVOTHYROXINE SODIUM 88 MCG TABLET PO SCH (06:30)
[2022-04-17 08:09] LABS: Basophils # (auto) 0.05 K/uL (0-0.2); Basophils % (auto) 0.4 %; Eosinophils # (auto) 0.21 K/uL (0-0.50); Eosinophils % (auto) 1.7 %; Hematocrit (blood only) 26.8 % (40.1-51.0); Immature Granulocytes # (auto) 0.07 K/uL (0.00-0.02); Immature Granulocytes % (auto) 0.6 %; Lymphocytes # (auto) 1.43 K/uL (1.2-3.4); Lymphocytes % (auto) 11.7 %; Mean Corpuscular Hemoglobin 37.2 pg (25.0-34.0); Mean Corpuscular Hgb Conc 33.6 g/dL (32.0-36.0); Mean Corpuscular Volume 110.7 fL (80.0-100.0); Mean Platelet Volume 10.5 fL (9.4-12.4); Monocytes # (auto) 1.12 K/uL (0.24-0.82); Monocytes % (auto) 9.2 %; Neutrophils # (auto) 9.32 K/uL (1.4-6.5); Neutrophils % (auto) 76.4 %; Nucleated RBC # (auto) 0.03 K/uL (0-0); Nucleated RBC % (auto) 0.2 %; Platelet Count 211 K/uL (130-400); RDW Coefficient of Variation 13.5 % (11.5-14.5); RDW Standard Deviation 55.3 fL (36.4-46.3); Red Blood Count 2.42 M/uL (4.63-6.08)
[2022-04-17 08:42] LABS: BUN Creatinine Ratio 21.6 (10-20); Calcium 7.9 mg/dl (8.5-10.1); Creatinine Clr Calc Pharmacy 74.1 ml/min; Est GFR (African American) 92.6 ml/min; Est GFR (Non-African American) 79.9 ml/min; Potassium 3.7 mmol/L (3.5-5.1)
[2022-04-17] MEDS: ASPIRIN 81 MG ECTAB PO SCH (08:54)
[2022-04-17] MEDS: ASCORBIC ACID 500 MG TAB PO SCH (08:54)
[2022-04-17] MEDS: DOCUSATE SODIUM 100 MG CAP PO SCH (08:54)
[2022-04-17] MEDS: Scopolamine CHECK PATCH PLACEMENT SCH (08:55)
[2022-04-17] MEDS ORDERED: FLUTICASONE/VILANTEROL 100/25MCG 14 PUFFS/INHALER INH SCH (09:00)
[2022-04-17] MEDS ORDERED: CYANOCOBALAMIN (B-12) 100 MCG TABLET PO SCH (09:00)
[2022-04-17] MEDS ORDERED: METOPROLOL SUCC 25MG EXT REL TAB PO SCH (09:00)
[2022-04-17] MEDS ORDERED: lisinopril 2.5 MG TAB PO SCH (09:00)
[2022-04-17] MEDS ORDERED: FUROSEMIDE 40 MG TAB PO SCH (09:00)
[2022-04-17] MEDS ORDERED: PANTOprazole 40 MG TAB PO SCH (09:00)
[2022-04-17] MEDS ORDERED: FOLIC ACID 1 MG TAB PO SCH (09:00)
[2022-04-17] MEDS ORDERED: POTASSIUM CHLORIDE CRTAB 20 MEQ TABCR PO SCH (09:00)
[2022-04-17] MEDS ORDERED: MULTIVITAMIN TAB PO SCH (09:00)
[2022-04-17] MEDS: INSULIN ASPART PER UNIT SC SCH ×2 (09:13→13:04)
--- NOTE | 2022-04-17 09:18 | Progress Notes ---
DATE OF SERVICE: 04/17/2022. SUBJECTIVE: A 66-year-old gentleman, postoperative day 1 from a right hip replacement. He is doing pretty well. No complaints. Just waiting for breakfast. No chest pain or shortness of breath. Not feeling dizzy or lightheaded. OBJECTIVE: VITAL SIGNS: Temperature 37.0. Vital signs are stable. PHYSICAL EXAMINATION: GENERAL: Shows a pleasant, elderly male. He is sitting up in his bedside chair, just waiting for br eakfast. EXTREMITIES: Examination of the right hip reveals the dressing to be clean, dry and intact. Thigh i s soft and supple. There is no significant drainage. The leg lengths were equal. He can dorsiflex and plantarflex his foot appropriately. LABORATORY DATA: Hemoglobin 9.0. Hematocrit 26.8. Electrolytes are stable. ASSESSMENT: A 66-year-old gentleman with multiple medical comorbidities. Postop day 1 from right hi p replacement, doing quite well. He really looks at baseline today. His pain is controlled. Hip is located. He is neurologically intact. He has been anemic, but without symptoms. PLAN: 1. DVT prophylaxis includes thigh-high TEDs, SCDs, and aspirin twice a day. 2. PT, OT, weightbear as tolerated. Right total hip protocol. 3. Pain control, doing okay with current pain regimen. 4. Anemia. He is asymptomatic. I will continue to follow him. We will check his H and H tomorrow. 5. Disposition: He is hoping to be discharged to rehab. He wants to go to [facility]. We will get working on that today. Job ID: [id number]
[2022-04-17] MEDS ORDERED: metFORMIN HCL 500 MG TAB PO SCH (11:30)
--- NOTE | 2022-04-19 09:01 | Discharge Summary ---
Date of Service April 19, 2022 Admission HPI (Per Admitting) The patient is a 66-year-old gentleman retired from [place], [place] who presents for surgical treatment of his right hip. 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 He has been followed by Dr. Aguilar at [facility]. He had some injections which helped him for about a week and that is about it. Pain has become moredisabling. He has got groin pain, thigh pain radiating down to his knee. The more he walks, the more it hurts. He limps more as the day goes on. He has nighttime pain. He would really like to get his hip fixed. Principal Diagnosis Same as "Discharge Diagnosis" noted below under Discharge Instructions. Discharge Data Procedures Performed Operation Date: 04/16/22 10:40 Actual Procedures p Right Total Hip Arthroplasty--Uncemented(Right) - Braulio Ornelas MD Hospital Course (1) Status post right hip replacement: Underwent R hip replacement with Dr. Ornelas on 04/16/2022. Surgery and post operative course was without complication. He was discharged to inpatient rehab on 04/17. PG Care Time/CCT Total # of Minutes Spent Total Time Spent with Patient: Total time spent is greater than 50% in coordination of care (as documented) at patient's floor/unit and/or counseling patient: Discharge Plan Discharge Items Patient Disposition: Transfer Inpatient Rehab Fac Reason For Visit: Degenerative Joint Disease, Right Hip Discharge Diagnosis: Right Hip REplacement Activity: As commented below Activity Comment: Obey hip precautions at all times Weightbearing: Full weightbearing Weightbearing Comment: Weightbear as tolerated obeying hip precautions Non-emergency contact: Surgeon Call non-emergency contact if: you have any medication questions Follow-up/Referrals: Gee Jack MD [Primary Care Provider] - Diet: Carb Consistent or DM2 Addtl Attending Provider Instructions: ACTIVITY RECOMMENDATIONS: Physical Therapy: * Aggressive physical therapy is not usually needed. You will learn to take care of yourself safely and walk. * Follow the "Hip Precautions Instructions." * In some cases, the social media manager at the hospital will arrange to have a therapist come to your house for the first couple of weeks to help you learn these skills. * You need to practice on your own or with the help of a family member as needed. * When you learn these skills, most of the therapy can be done on your own. Home Exercise: * You were shown a series of exercises in the hospital. Do these exercises three to four times each day including the exercises you were shown in physical therapy. Walking: * Get up and walk several times each day. For the first four weeks, try not to stand or walk for more than one hour at a time. If you do stand or walk for more than one hour, you will not hurt anything, but your leg will likely swell. * As you feel comfortable, you may change from the walker or crutches to a cane and then to independent walking. MEDICATIONS: New Medicine: * You will likely be taking one or more of these medicines: 1. Tramadol - Take, as directed, when you need it, every six hours to control your pain. 2. Aspirin - Thins your blood to lessen the chance of forming a blood clot. * The most common side effects of pain medicine and iron are nausea and constipation. If nausea or constipation is too much of a problem or if you have any questions about your new medicines or doses, call [facility] at . We will try to help you manage these issues. "VERY IMPORTANT TO READ AND REVIEW" Pain: * The immediate post-operative period after hip replacement surgery is often quite painful. * You are given a prescription for pain medicine. You should take it, as directed, when you need it, especially before physical therapy and before going to bed. Pain that interferes with sleep is very common and can last several months. * You will likely need pain medicine for the first two to four weeks. It will not stop all of the pain. The pain will lessen and as you feel better, you may change to milder pain medicine such as Tylenol. * The most common side effects of pain medicine are nausea and constipation, so don't take more than you need. SPECIAL CARE INSTRUCTIONS: TEDs/Elastic Stockings: * The white elastic stockings help limit swelling and prevent blood clots from forming in your legs. The more you wear them, the more they work. * Wear them for six weeks. Incision Site Care: * Remove dressing postoperative day 2 and then shower. Keep direct shower pressure off the incision site. * After showering, cover taniya with dry gauze and change daily or more frequently if the dressing is getting saturated with drainage. * May completely stop using bandage if wound is dry and no drainage * Taniya are removed between 2 and 3 weeks post-op. If your follow-up appointment is made before 2 weeks, please have your appointment re- scheduled. It is too early to remove the taniya. Prevention of Infection: * Take antibiotics one hour before any dental cleaning, dental work, urological procedure, gastrointestinal procedure or any invasive surgery in order to prevent your new joint from getting infected. * You may get the antibiotics from the doctor performing the procedure or you may call our office at before and we will call in a prescription to the pharmacy of your choice. Things to Watch For: * Drainage from the incision site that occurs more than one week after your surgery. * Severely increased leg pain or swelling. * Increased redness at the incision site. * Fever above 102 degrees Fahrenheit. * Unusual chest pain or shortness of breath. * Unusual pain or burning with urination. Call [facility] at with any of the above problems or if you have any questions about your medicines or recovery. FOLLOW UP VISIT: Make an appointment to see your doctor for approximately two weeks after surgery for a progress check and staple removal by calling the office at . Pending Studies at Discharge: No Stand-Alone Forms: My [facility] Skilled Items Patient informed of condition?: Yes DNR: No Discharge Level of Care: Acute rehab Communicable Disease: Yes Discharge Prognosis: Improving Lines: None Urinary Catheter: No Medications and DC Order Prescriptions: New acetaminophen [Tylenol Extra Strength] 500 mg Tablet 1,000 mg PO Q8 30 Days Qty: 180 0RF Rx Instructions: Take 3 times per day to lessen pain. aspirin 81 mg Tablet,Delayed Release (Dr/Ec) 81 mg PO BID 45 Days Qty: 90 0RF Rx Instructions: Take to prevent blood clots. tramadol 50 mg Tablet 50 - 100 mg PO Q6H PRN (Reason: pain) Qty: 40 0RF Rx Instructions: Take as needed for Pain. Continued (DME) Wheeled Walker Misc See Rx Instructions .MEDSUPPLY Qty: 1 0RF Rx Instructions: As directed atorvastatin 80 mg Tablet 80 mg PO HS tamsulosin 0.4 mg Capsule 0.4 mg PO QPM omeprazole 20 mg Capsule,Delayed Release(Dr/Ec) 20 mg PO QAM folic acid 1 mg Tablet 1 mg PO QAM metoprolol succinate 25 mg Tablet Extended Release 24 Hr 25 mg PO QAM lisinopril 2.5 mg Tablet 2.5 mg PO QAM Enbrel 50 mg/mL (1 mL) Syringe 50 mg SUBCUT WK metformin 500 mg Tablet 500 mg PO QAM furosemide 40 mg Tablet 40 mg PO QAM cyanocobalamin (vitamin B-12) [Vitamin B-12] 100 mcg Tablet 100 mcg PO QAM levothyroxine 88 mcg Tablet 88 mcg PO QAM albuterol sulfate 90 mcg/actuation Hfa Aerosol Inhaler 1 inh INHALATION QID PRN (Reason: sob) potassium chloride 20 mEq Tablet Extended Release 20 meq PO QAM fluticasone propion-salmeterol [Advair Diskus] 250-50 mcg/dose Blister With Device 1 inh INHALATION BID naloxone 4 mg/actuation [place],Non-Aerosol 4 mg INTRANASAL UD PRN (Reason: narcotic overdose) Discontinued aspirin 81 mg Tablet 81 mg PO QAM oxycodone 5 mg Tablet 5 mg PO BID PRN (Reason: Pain) Discharge Orders: Discharge Order (Routine); Ordered 04/17/22 Ordered By: Braulio Ornelas Admission Data Admit Date/Time: 04/16/22 13:00 Attending Provider: Braulio Ornelas Admit Provider: Braulio Ornelas Primary Care Provider: Gee Jack Other Providers: [facility] Other Interventions: Discharge Summary Assessment (RN) Last Done: 04/17/22 13:32
== END 2022-04-17 15:29 ==
LOC: PACUINP 08:09 → ASU 08:09 → 3N 14:52